=== PATIENT | female | born 1960 | race Caucasian/White ===

== ENCOUNTER → 2016-09-27 | Outpatient (CLI) | payer OTHER ==
--- NOTE | 2016-09-28 10:26 | MM ---
Reason for exam: screening (asymptomatic). Baseline mammogram. History: Patient is postmenopausal and history of other cancer. Physical Findings: Nurse Summary: 0.25cm nodule in the left breast at 9 o'clock (nurse adamaris). MG Screening Mammo w CAD Bilateral CC and MLO view(s) were taken. The breast tissue is heterogeneously dense. This may lower the sensitivity of mammography. Finding: There are typically benign round calcifications. There is no discrete abnormality. ASSESSMENT: Benign, BI-RAD 2 RECOMMENDATION: Routine screening mammogram of both breasts in 1 year.
== END | disposition home or self-care (01) ==
LOC: RADMAMWWP 10:05
PROVIDERS: ATTEND Family Medicine
DX: Z12.31 Encounter for screening mammogram for malignant neoplasm of breast (principal)

== ENCOUNTER 2016-10-03 08:35 | Day surgery (SDC) | payer OTHER ==
[2016-09-29 11:26] VITALS: BMI 22.2
[~2016-10-03 08:35] MED LIST: LACTATED RINGERS 1,000 ML IV SCH
[2016-10-03 09:12] VITALS: RESP 18; TEMP 97.9
[2016-10-03] MEDS ORDERED: LIDOCAINE 1% 20 ML VIAL (10MG/ML) FOR IV START INTRADERMA ONE (09:20)
[2016-10-03] MEDS ORDERED: LIDOCAINE 1% INJ 10MG/ML (20 ML MDV) ONE (09:55)
[2016-10-03] MEDS ORDERED: hydrALAZINE HCL 20 MG/ML 1 ML VIAL ONE (09:55)
[2016-10-03] MEDS ORDERED: PROPOFOL 10 MG/ML 20 ML VIAL IV ONE (09:55)
[2016-10-03 10:19] VITALS: PULSE 60
--- NOTE | 2016-10-03 10:26 | P.PCN ---
Date of Procedure: 10/03/16 Procedure(s) Performed: Procedure: Colonoscopy and biopsy. Preoperative diagnosis: Screening for neoplasia. Postoperative diagnosis: Small right colon polyp biopsied but no large polyps or cancer. Preparation: HalfLytely prep. Sedation: Was provided by anesthesia. Brief clinical history: The patient is a 55-year-old female who is referred for this evaluation for screening for neoplasia, age being her risk factor. She has no abdominal complaints, bleeding or anemia. No family history of colon cancer. This would be her first colonoscopy. Procedure: With the patient on her left lateral decubitus position and after informed consent and adequate sedation, the perianal area was inspected and it did not show any fissures or fistulas. There were no masses felt on digital rectal examination. The Olympus CFQ 160L video colonoscope was then inserted in the rectum in the usual fashion and advanced to the cecum. There was a small ,flat and elongated polyp in the right colon, having to features of a hyperplastic polyp which I biopsied, but there were no large polyps or cancer or any obvious diverticular disease or other pathology. I retroflexed endoscope in the rectum before the endoscope was withdrawn. The patient tolerated the procedure well. Plan: The patient was reassured. Will await biopsy results. I anticipate repeating this exam in 5-7 years. She will follow-up with you as planned.
[2016-10-03 10:36] VITALS: BP 149/90
== END 2016-10-03 10:55 | disposition home or self-care (01) ==
LOC: ORWHC2ENDO 08:35
DX: Z12.11 Encounter for screening for malignant neoplasm of colon (principal); D12.2 Benign neoplasm of ascending colon; I10 Essential (primary) hypertension; E78.5 Hyperlipidemia, unspecified; Z79.899 Other long term (current) drug therapy; Z72.0 Tobacco use
CPT/HCPCS: 88305; 45380; J0360; J2001; J2704; 99153

== ENCOUNTER → 2017-04-23 | Outpatient (CLI) | payer OTHER ==
[2017-04-23 10:08] LABS: ALT 37 U/L (9-52); AST 18 U/L (14-36); Cholesterol 163 mg/dL (<200); HDL Cholesterol 53 mg/dL (40-60); Triglycerides 89 mg/dL (<150)
== END | disposition home or self-care (01) ==
LOC: LABWHC1 09:26
PROVIDERS: ATTEND Internal Medicine Interventional Cardiology
DX: E78.2 Mixed hyperlipidemia (principal)
CPT/HCPCS: 36415; 80061; 84450; 84460

== ENCOUNTER 2017-06-29 08:38 | Observation (INO) | payer OTHER ==
[2017-06-29] MEDS ORDERED: NITROGLYCERIN OINT 1 INCH/GM PACKET TOPICAL STA (08:54)
[2017-06-29] MEDS ORDERED: NITROGLYCERIN SL TABS 0.4 MG TAB SUBLINGUAL STA (08:54)
[2017-06-29] MEDS ORDERED: ASPIRIN 81 MG PO STA (08:54)
--- NOTE | 2017-06-29 09:01 | ED ---
General Adult HPI - General Chief complaint: Chest Pain Stated complaint: left arm numbness/HTN Time Seen by Provider: 06/29/17 08:40 Source: patient, RN notes reviewed Mode of arrival: wheelchair Limitations: no limitations - History of Present Illness Initial comments: This is a 56-year-old female with past medical history significant for smoking hypertension high cholesterol. Patient presents today after having had chest pain and left arm tingling. Patient states the left arm is been constant for 3 days but the chest pain comes and goes and is only very minimally currently. Patient states she is no more short of breath than normal. Patient denies diaphoresis. Patient denies any nausea. Patient denies abdominal pain patient denies nausea vomiting diarrhea. Patient denies any recent fever chills or cough. Patient denies headache patient denies lightheadedness dizziness or near syncopal episode. Patient denies any headache patient denies numbness or weakness. Patient states pain in her chest is more of a pressure sensation and it does get worse at times and she has not noted getting worse with exertion. - Related Data Home Medications Medication Instructions Recorded Confirmed Lisinopril [Prinivil] 10 mg PO HS 09/29/16 06/29/17 Metoprolol Tartrate [Lopressor] 50 mg PO BID 09/29/16 06/29/17 Simvastatin [Zocor] 20 mg PO HS 09/29/16 06/29/17 Metoprolol Tartrate [Lopressor] 25 mg PO ONCE PRN 06/29/17 06/29/17 Allergies Allergy/AdvReac Type Severity Reaction Status Date / Time No Known Allergies Allergy Verified 06/29/17 09:02 Review of Systems ROS Statement: Those systems with pertinent positive or pertinent negative responses have been documented in the HPI. ROS Other: All systems not noted in ROS Statement are negative. Past Medical History Past Medical History: Cancer, Chest Pain / Angina, Hyperlipidemia, Hypertension , Skin Disorder Additional Past Medical History / Comment(s): skin cancer, History of Any Multi-Drug Resistant Organisms: None Reported Past Surgical History: Tubal Ligation Past Anesthesia/Blood Transfusion Reactions: Previous Problems w/ Anesthesia Additional Past Anesthesia/Blood Transfusion Reaction / Comment(s): hard time waking up Past Psychological History: No Psychological Hx Reported Smoking Status: Current every day smoker - Past Family History Mother Family Medical History: No Reported History General Exam - General Exam Comments Initial Comments: GENERAL: Patient is well-developed and well-nourished. Patient is nontoxic and well- hydrated and is in mild distress. ENT: Neck is soft and supple. No significant lymphadenopathy is noted. Oropharynx is clear. Moist mucous membranes. Neck has full range of motion without eliciting any pain. EYES: The sclera were anicteric and conjunctiva were pink and moist. Extraocular movements were intact and pupils were equal round and reactive to light. Eyelids were unremarkable. PULMONARY: Unlabored respirations. Good breath sounds bilaterally. No audible rales rhonchi or wheezing was noted. CARDIOVASCULAR: There is a regular rate and rhythm without any murmurs gallops or rubs. ABDOMEN: Soft and nontender with normal bowel sounds. No palpable organomegaly was noted. There is no palpable pulsatile mass. SKIN: Skin is clear with no lesions or rashes and otherwise unremarkable. NEUROLOGIC: Patient is alert and oriented x3. Cranial nerves II through XII are grossly intact. Motor and sensory are also intact. Normal speech, volume and content. Symmetrical smile. MUSCULOSKELETAL: Normal extremities with adequate strength and full range of motion. No lower extremity swelling or edema. No calf tenderness. LYMPHATICS: No significant lymphadenopathy is noted PSYCHIATRIC: Normal psychiatric evaluation. Normal interpersonal interactions appears functionally intact in deals appropriately with others. No signs of depression. No signs of anxiety. Limitations: no limitations Course Vital Signs 06/29/17 06/29/17 06/29/17 08:40 08:55 09:10 Temperature 97.1 F L Pulse Rate 74 72 55 L Respiratory 16 16 16 Rate Blood Pressure 195/127 212/123 199/112 O2 Sat by Pulse 99 100 100 Oximetry 06/29/17 06/29/17 09:33 10:00 Temperature Pulse Rate 55 L 57 L Respiratory 16 17 Rate Blood Pressure 191/112 190/110 O2 Sat by Pulse 100 99 Oximetry Medical Decision Making - Medical Decision Making EKG shows sinus bradycardia 57 bpm MO interval is 142 QRS is 84 QT interval 412 QTC is 411. Patient's EKG shows no ST segment elevation or depression or T- wave abnormalities. Patient's chest x-ray shows no acute abnormality. Patient states she's feeling better with the oxygen Nitropaste and aspirin and resting in bed. I started the patient on heparin because of the significance of her symptoms and the fact that they were new for her. I gave the patient hydralazine to continue to bring down her blood pressure. I spoke with Dr. Sadler I wrote admitting orders I admitted the patient I consult to cardiology I continue the heparin Nitropaste and aspirin on the floor. - Lab Data Result diagrams: 06/29/17 09:00 06/29/17 09:00 Lab Results 06/29/17 06/29/17 06/29/17 Range/Units 09:00 09:00 09:00 WBC 7.5 (3.8-10.6) k/uL RBC 4.89 (3.80-5.40) m/uL Hgb 15.4 (11.4-16.0) gm/dL Hct 48.1 H (34.0-46.0) % MCV 98.4 (80.0-100.0) fL MCH 31.6 (25.0-35.0) pg MCHC 32.1 (31.0-37.0) g/dL RDW 13.3 (11.5-15.5) % Plt Count 227 (150-450) k/uL Neutrophils % 70 % Lymphocytes % 23 % Monocytes % 4 % Eosinophils % 2 % Basophils % 0 % Neutrophils # 5.3 (1.3-7.7) k/uL Lymphocytes # 1.7 (1.0-4.8) k/uL Monocytes # 0.3 (0-1.0) k/uL Eosinophils # 0.1 (0-0.7) k/uL Basophils # 0.0 (0-0.2) k/uL PT (9.0-12.0) sec INR (<1.2) APTT (22.0-30.0) sec Sodium 143 (137-145) mmol/L Potassium 4.2 (3.5-5.1) mmol/L Chloride 110 H (98-107) mmol/L Carbon Dioxide 21 L (22-30) mmol/L Anion Gap 12 mmol/L BUN 10 (7-17) mg/dL Creatinine 0.72 (0.52-1.04) mg/dL Est GFR (MDRD) Af Amer >60 (>60 ml/min/1.73 sqM) Est GFR (MDRD) Non-Af >60 (>60 ml/min/1.73 sqM) Glucose 93 (74-99) mg/dL Calcium 10.0 (8.4-10.2) mg/dL Magnesium 2.0 (1.6-2.3) mg/dL Total Bilirubin 1.5 H (0.2-1.3) mg/dL AST 20 (14-36) U/L ALT 31 (9-52) U/L Alkaline Phosphatase 77 (38-126) U/L Total Creatine Kinase 52 (30-135) U/L CK-MB (CK-2) 0.6 (0.0-2.4) ng/mL CK-MB (CK-2) Rel Index 1.2 Troponin I <0.012 (0.000-0.034) ng/mL Total Protein 7.3 (6.3-8.2) g/dL Albumin 4.7 (3.5-5.0) g/dL 06/29/17 Range/Units 09:00 WBC (3.8-10.6) k/uL RBC (3.80-5.40) m/uL Hgb (11.4-16.0) gm/dL Hct (34.0-46.0) % MCV (80.0-100.0) fL MCH (25.0-35.0) pg MCHC (31.0-37.0) g/dL RDW (11.5-15.5) % Plt Count (150-450) k/uL Neutrophils % % Lymphocytes % % Monocytes % % Eosinophils % % Basophils % % Neutrophils # (1.3-7.7) k/uL Lymphocytes # (1.0-4.8) k/uL Monocytes # (0-1.0) k/uL Eosinophils # (0-0.7) k/uL Basophils # (0-0.2) k/uL PT 10.4 (9.0-12.0) sec INR 1.0 (<1.2) APTT 23.2 (22.0-30.0) sec Sodium (137-145) mmol/L Potassium (3.5-5.1) mmol/L Chloride (98-107) mmol/L Carbon Dioxide (22-30) mmol/L Anion Gap mmol/L BUN (7-17) mg/dL Creatinine (0.52-1.04) mg/dL Est GFR (MDRD) Af Amer (>60 ml/min/1.73 sqM) Est GFR (MDRD) Non-Af (>60 ml/min/1.73 sqM) Glucose (74-99) mg/dL Calcium (8.4-10.2) mg/dL Magnesium (1.6-2.3) mg/dL Total Bilirubin (0.2-1.3) mg/dL AST (14-36) U/L ALT (9-52) U/L Alkaline Phosphatase (38-126) U/L Total Creatine Kinase (30-135) U/L CK-MB (CK-2) (0.0-2.4) ng/mL CK-MB (CK-2) Rel Index Troponin I (0.000-0.034) ng/mL Total Protein (6.3-8.2) g/dL Albumin (3.5-5.0) g/dL Critical Care Time Critical Care Time: Yes Total Critical Care Time: 35 Disposition Clinical Impression: Unstable angina pectoris, Hypertension Disposition: ADMITTED IP TO THIS HOSP Referrals: Catrina Hollingsworth MD [Primary Care Provider] - 1-2 days Time of Disposition: 10:43
[2017-06-29 09:18] LABS: Basophils % (A) 0 %; CH 33.4; CHCM 34.1; Eosinophils # (A) 0.1 k/uL (0-0.7); Eosinophils % (A) 2 %; HCT 48.1 % (34.0-46.0); HDW 2.22; HGB 15.4 gm/dL (11.4-16.0); Luc % (Auto) 1; Lymphocytes # (A) 1.7 k/uL (1.0-4.8); Lymphocytes % (A) 23 %; MCH 31.6 pg (25.0-35.0); MCHC 32.1 g/dL (31.0-37.0); MCV 98.4 fL (80.0-100.0); Mean Platelet Volume 9.3; Monocytes # (A) 0.3 k/uL (0-1.0); Monocytes % (A) 4 %; Neutrophils # (A) 5.3 k/uL (1.3-7.7); Neutrophils % (A) 70 %; RBC 4.89 m/uL (3.80-5.40); RDW 13.3 % (11.5-15.5); WBC 7.5 k/uL (3.8-10.6); WBC (Perox) 7.66
--- NOTE | 2017-06-29 09:18 | XR ---
EXAMINATION TYPE: XR chest 2V DATE OF EXAM: 06/29/2017 COMPARISON: November 25, 2012 HISTORY: Chest pain TECHNIQUE: Frontal and lateral views of the chest are obtained. FINDINGS: There is no focal air space opacity. No evidence for pneumothorax. No pleural effusion. The cardiac silhouette size is within normal limits. The osseous structures are grossly intact. IMPRESSION: 1. No acute cardiopulmonary process.
[2017-06-29 09:37] LABS: ALT 31 U/L (9-52); AST 20 U/L (14-36); Alkaline Phosphatase 77 U/L (38-126); Anion Gap 12 mmol/L; Blood Urea Nitrogen 10 mg/dL (7-17); Carbon Dioxide 21 mmol/L (22-30); Chloride 110 mmol/L (98-107); Glucose 93 mg/dL (74-99); Non-African American GFR(MDRD) >60 (>60 ml/min/1.73 sqM); Potassium 4.2 mmol/L (3.5-5.1); Sodium 143 mmol/L (137-145); Total Bilirubin 1.5 mg/dL (0.2-1.3); Total Protein 7.3 g/dL (6.3-8.2)
[2017-06-29 09:48] LABS: Creatine Kinase 52 U/L (30-135)
[2017-06-29 09:50] LABS: Partial Thromboplastin Time 23.2 sec (22.0-30.0); Prothrombin Time 10.4 sec (9.0-12.0)
[2017-06-29 10:01] LABS: Creatine Kinase MB 0.6 ng/mL (0.0-2.4); Troponin I <0.012 ng/mL (0.000-0.034)
[2017-06-29] MEDS ORDERED: HEPARIN SODIUM,PORCINE 5,000 UNIT/ML 1 ML VIAL IV ONE (10:40)
[2017-06-29] MEDS ORDERED: NITROGLYCERIN SL TABS 0.4 MG TAB SUBLINGUAL PRN (10:43)
[2017-06-29] MEDS ORDERED: HEPARIN SODIUM,PORCINE/D5W PMX 25,000 UNIT in DEXTROSE/WATER 1 500ML.BAG IV SCH (10:45)
[2017-06-29] MEDS: hydrALAZINE HCL 20 MG/ML 1 ML VIAL IVP STA ×2 (11:08→11:10)
--- NOTE | 2017-06-29 12:25 | P.CRDCN ---
History of Present Illness Consult date: 06/29/17 History of present illness: This is a 56-year-old female patient who follows with Dr. Mondragon as an outpatient. Past medical history significant for hyperlipidemia and hypertension. We have been asked to see the patient for complaints of chest pain. She states for the last three days she has been woken up with severely elevated blood pressures in the 200 systolic. She also is experiencing chest tightness and left arm tingling. Of note she states for the past week she has been belching more frequently and taking tums for indigestion. The pain dose not radiate anywhere. She denies shortness of breath, dizziness, headache, palpitations or nausea/vomiting. Yesterday while this was going on she decided to go for a walk and see if that helped and it did. Her blood pressure had come down and she was chest pain free. She had a similar experience in April and was seen at another hospital but left prior to seeing cardiology. Medications include Zocor 20 mg daily, lisinopril 10 mg daily at bedtime and Lopressor 50 mg twice a day. Her most recent echocardiogram performed November 2012 reveals preserved left ventricular systolic function with an ejection fraction of 50-55% . Aortic valve appeared to be mildly thickened without stenosis or regurgitation at that time. Mitral valve appeared mildly thickened with mild mitral regurgitation. Blood pressure on arrival to the ED 195/127 she was given IV hydralazine and nitro paste. Repeat blood pressure 164/98 with a heart rate of 58. EKG reveals sinus bradycardia with no acute ST or T-wave abnormality. Cardiac enzymes negative x1. She is chronic tobacco abuser smoking one pack per one week. Review of Systems CONSTITUTIONAL: Denies fever. Denies chills. EYES: Denies blurred vision. Denies vision changes. Denies eye pain. EARS, NOSE, MOUTH & THROAT: Denies headache. Denies sore throat. Denies ear pain. CARDIOVASCULAR: C/O chest pain. Denies shortness of breath. Denies orthopnea. Denies PND. Denies palpitations. RESPIRATORY: Denies cough. GASTROINTESTINAL: Denies abdominal pain. Denies diarrhea. Denies constipation. Denies nausea. Denies vomiting. MUSCULOSKELETAL: Denies myalgias. INTEGUMENTARY: Denies pruitis. Denies rash. NEUROLOGIC: Denies numbness. Denies tingling. Denies weakness. PSYCHIATRIC: Denies anxiety. Denies depression. ENDOCRINE: Denies fatigue. Denies weight change. Denies polydipsia. Denies polyurina. GENITOURINARY: Denies burning, hematuria or urgency with micturation. HEMATOLOGIC: Denies history of anemia. Denies bleeding. Past Medical History Past Medical History: Cancer, Chest Pain / Angina, Hyperlipidemia, Hypertension , Skin Disorder Additional Past Medical History / Comment(s): skin cancer, History of Any Multi-Drug Resistant Organisms: None Reported Past Surgical History: Tubal Ligation Past Anesthesia/Blood Transfusion Reactions: Previous Problems w/ Anesthesia Additional Past Anesthesia/Blood Transfusion Reaction / Comment(s): hard time waking up Past Psychological History: No Psychological Hx Reported Smoking Status: Current every day smoker - Past Family History Mother Family Medical History: No Reported History Father History Unknown: Yes Additional Family Medical History / Comment(s): Father in a train accident. Medications and Allergies Home Medications Medication Instructions Recorded Confirmed Type Lisinopril [Prinivil] 10 mg PO HS 09/29/16 06/29/17 History Metoprolol Tartrate [Lopressor] 50 mg PO BID 09/29/16 06/29/17 History Simvastatin [Zocor] 20 mg PO HS 09/29/16 06/29/17 History Metoprolol Tartrate [Lopressor] 25 mg PO ONCE PRN 06/29/17 06/29/17 History Allergies Allergy/AdvReac Type Severity Reaction Status Date / Time No Known Allergies Allergy Verified 06/29/17 09:02 Physical Exam Vitals: Vital Signs Temp Pulse Resp BP Pulse Ox 06/29/17 11:22 97.9 F 06/29/17 11:08 58 L 16 164/98 98 06/29/17 10:00 57 L 17 190/110 99 06/29/17 09:33 55 L 16 191/112 100 06/29/17 09:10 55 L 16 199/112 100 06/29/17 08:55 72 16 212/123 100 06/29/17 08:40 97.1 F L 74 16 195/127 99 Intake and Output 06/28/17 06/29/17 06/29/17 22:59 06:59 14:59 Other: Weight 64.41 kg Patient Weight 06/30/17 06:59 Weight 64.41 kg GENERAL: This is a 56-year-old female in no apparent distress at the time of my examination. Appears older than stated age. HEENT: Head is atraumatic, normocephalic. Pupils are equal, round. Sclerae anicteric. Conjunctivae are clear. Mucous membranes of the mouth are moist. Neck is supple. There is no jugular venous distention. No carotid bruit is heard. LUNGS: Coarse lung sounds throughout. No wheezes, rales or rhonchi. No chest wall tenderness is noted on palpation or with deep breathing. HEART: Regular rate and rhythm without murmurs, rubs or gallops. S1 and S2 heard. ABDOMEN: Soft, nontender. Bowel sounds are heard. No organomegaly noted. EXTREMITIES: 2+ peripheral pulses with no evidence of peripheral edema and no calf tenderness noted. NEUROLOGIC: Patient is awake, alert and oriented x3. Results 06/29/17 09:00 06/29/17 09:00 Cardiac Enzymes 06/29/17 06/29/17 Range/Units 09:00 09:00 AST 20 (14-36) U/L CK-MB (CK-2) 0.6 (0.0-2.4) ng/mL Troponin I <0.012 (0.000-0.034) ng/mL Coagulation 06/29/17 Range/Units 09:00 PT 10.4 (9.0-12.0) sec APTT 23.2 (22.0-30.0) sec CBC 06/29/17 Range/Units 09:00 WBC 7.5 (3.8-10.6) k/uL RBC 4.89 (3.80-5.40) m/uL Hgb 15.4 (11.4-16.0) gm/dL Hct 48.1 H (34.0-46.0) % Plt Count 227 (150-450) k/uL Comprehensive Metabolic Panel 06/29/17 Range/Units 09:00 Sodium 143 (137-145) mmol/L Potassium 4.2 (3.5-5.1) mmol/L Chloride 110 H (98-107) mmol/L Carbon Dioxide 21 L (22-30) mmol/L BUN 10 (7-17) mg/dL Creatinine 0.72 (0.52-1.04) mg/dL Glucose 93 (74-99) mg/dL Calcium 10.0 (8.4-10.2) mg/dL AST 20 (14-36) U/L ALT 31 (9-52) U/L Alkaline Phosphatase 77 (38-126) U/L Total Protein 7.3 (6.3-8.2) g/dL Albumin 4.7 (3.5-5.0) g/dL Current Medications Generic Name Dose Route Start Last Admin Trade Name Freq PRN Reason Stop Dose Admin Aspirin 325 mg 06/30/17 09:00 Aspirin PO DAILY [facility] Heparin Sodium/Dextrose 25,000 500 mls @ 15.45 mls/hr 06/29/17 10:45 11:09 unit/ IV Solution IV 12 units/kg/hr .Q24H NORAH 15.45 mls/hr Protocol Administration 12 UNITS/KG/HR Nitroglycerin 1 inch 06/29/17 12:00 Nitro-Bid Oint TOPICAL Q6HR [facility] Nitroglycerin 0.4 mg 06/29/17 10:43 Nitrostat SUBLINGUAL Q5M PRN Chest Pain Intake and Output 06/28/17 06/29/17 06/29/17 22:59 06:59 14:59 Other: Weight 64.41 kg Patient Weight 06/30/17 06:59 Weight 64.41 kg 06/29/17 09:00 06/29/17 09:00 EKG Interpretations (text) EKG reveals sinus mechanism with no acute ST or T-wave abnormality. Heart rate 57. Assessment and Plan Plan: ASSESSMENT 1. Chest pain, atypical 2. Uncontrolled hypertension 3. Dyslipidemia 4. Chronic tobacco abuse PLAN Continue to obtain serial cardiac enzymes and EKG in the morning to rule out an acute coronary event. Continue with IV heparin and Nitropaste until acute coronary event has been ruled out. Obtain 2-D echo and Doppler study to assess cardiac structure and function. Add amlodipine 10 mg daily, first dose now. Increase lisinopril 20 mg daily. Continue Lopressor 50 mg by mouth twice a day. Continue Zocor 20 mg at bedtime. We recommend keeping the patient overnight for continuous telemetry monitoring and further evaluation of symptoms. Further recommendations will be based upon clinical course. Smoking cessation has been discussed. Nurse Practitioner note has been reviewed, I agree with a documented findings and plan of care. Patient was seen and examined.
--- NOTE | 2017-06-29 15:49 | P.HPIM ---
History of Present Illness Her old female came in with complaints of epigastric abdominal burning sensation along with the nausea which we'll use by burping and radiation of pain to the left arm patient's pain is burning sensation precipitated by food patient denied any shortness of breath dizziness lightheadedness or diaphoresis associated that patient chest pain is nonpleuritic in nature patient is found to have highly elevated blood pressure because of which she was given hydralazine with the blood pressure coming down to about about 150 systolic patient was started on amlodipine by cardiology which which is probably appropriate but we will cut down the dose of amlodipine from 10 mg to 5 mg and patient had an EKG which did not show any acute ST-T wave changes facet of troponin is negative patient is a smoker uses about one pack of cigarettes per week. Patient's elevated blood pressure is probably secondary to epigastric burning sensation and nausea Review of Systems REVIEW OF SYSTEMS: CONSTITUTIONAL: No fever, no malaise, no fatigue. HEENT: No recent visual problems or hearing problems. Denied any sore throat. CARDIOVASCULAR: No orthopnea, PND, no palpitations, no syncope. PULMONARY: No shortness of breath, no cough, no hemoptysis. GASTROINTESTINAL: No diarrhea, Normoactive bowel sounds. NEUROLOGICAL: No headaches, no weakness, no numbness. HEMATOLOGICAL: Denies any bleeding or petechiae. GENITOURINARY: Denies any burning micturition, frequency, or urgency. MUSCULOSKELETAL/RHEUMATOLOGICAL: Denies any joint pain, swelling, or any muscle pain. ENDOCRINE: Denies any polyuria or polydipsia. The rest of the 14-point review of systems is negative. Past Medical History Past Medical History: Cancer, Chest Pain / Angina, Hyperlipidemia, Hypertension , Skin Disorder Additional Past Medical History / Comment(s): skin cancer, History of Any Multi-Drug Resistant Organisms: None Reported Past Surgical History: Tubal Ligation Additional Past Surgical History / Comment(s): Skin cancer removals, colonoscopy. Past Anesthesia/Blood Transfusion Reactions: Previous Problems w/ Anesthesia Additional Past Anesthesia/Blood Transfusion Reaction / Comment(s): hard time waking up Past Psychological History: No Psychological Hx Reported Smoking Status: Current every day smoker - Past Family History Mother Family Medical History: No Reported History Additional Family Medical History / Comment(s): Mother currently has CDiff. She recently had a ruptured gastric ulcer with surgical repair and is not recovering from this. She is 84 yrs old and pt states currently dying. Father History Unknown: Yes Additional Family Medical History / Comment(s): Father in a train accident. Medications and Allergies Home Medications Medication Instructions Recorded Confirmed Type Lisinopril [Prinivil] 10 mg PO HS 09/29/16 06/29/17 History Metoprolol Tartrate [Lopressor] 50 mg PO BID 09/29/16 06/29/17 History Simvastatin [Zocor] 20 mg PO HS 09/29/16 06/29/17 History Metoprolol Tartrate [Lopressor] 25 mg PO ONCE PRN 06/29/17 06/29/17 History Allergies Allergy/AdvReac Type Severity Reaction Status Date / Time No Known Allergies Allergy Verified 06/29/17 09:02 Physical Exam Vitals: Vital Signs Temp Pulse Pulse Resp BP BP Pulse Ox 06/29/17 11:30 98.4 F 54 L 15 162/91 98 06/29/17 11:22 97.9 F 06/29/17 11:08 58 L 16 164/98 98 06/29/17 10:00 57 L 17 190/110 99 06/29/17 09:33 55 L 16 191/112 100 06/29/17 09:10 55 L 16 199/112 100 06/29/17 08:55 72 16 212/123 100 06/29/17 08:40 97.1 F L 74 16 195/127 99 Intake and Output 06/29/17 06/29/17 06/29/17 06:59 14:59 22:59 Other: Weight 62.5 kg Patient Weight 06/30/17 06:59 Weight 62.5 kg PHYSICAL EXAMINATION: GENERAL: The patient is alert and oriented x3, not in any acute distress. Well developed, well nourished. HEENT: Pupils are round and equally reacting to light. EOMI. No scleral icterus. No conjunctival pallor. Normocephalic, atraumatic. No pharyngeal erythema. No thyromegaly. CARDIOVASCULAR: S1 and S2 present. No murmurs, rubs, or gallops. PULMONARY: Chest is clear to auscultation, no wheezing or crackles. ABDOMEN: Soft, nontender, nondistended, normoactive bowel sounds. No palpable organomegaly. MUSCULOSKELETAL: No joint swelling or deformity. EXTREMITIES: No cyanosis, clubbing, or pedal edema. NEUROLOGICAL: Gross neurological examination did not reveal any focal deficits. SKIN: No rashes. Results CBC & Chem 7: 06/29/17 09:00 06/29/17 09:00 Labs: Abnormal Lab Results - Last 24 Hours (Table) 06/29/17 06/29/17 Range/Units 09:00 09:00 Hct 48.1 H (34.0-46.0) % Chloride 110 H (98-107) mmol/L Carbon Dioxide 21 L (22-30) mmol/L Total Bilirubin 1.5 H (0.2-1.3) mg/dL Thrombosis Risk Factor Assmnt - Choose All That Apply Any of the Below Risk Factors Present?: Yes Each Factor Represents 1 point: Age 41-60 years Each Risk Factor Represents 2 Points: Malignancy Other congenital or acquired thrombophilia - If yes, enter type in comment: No Thrombosis Risk Factor Assessment Total Risk Factor Score: 3 Thrombosis Risk Factor Assessment Level: Moderate Risk Assessment and Plan Plan: #1 epigastric abdominal burning sensation along with nausea: We will rule out acute coronary syndromes was a repeat 2 more sets of troponins and EKGs but her pain is most probably related to gastritis and dry gastric esophageal reflux disease for which patient will be started on protonic. #2 accelerated hypertension secondary to nausea and gastritis. Patient does have history of essential hypertension. #3 essential hypertension #4 hyperlipidemia
--- NOTE | 2017-06-29 15:51 | ECHOF ---
Referral Reason:chest pain MEASUREMENTS -------- HEIGHT: 167.6 cm WEIGHT: 64.4 kg BP: 164/98 RVIDd: 2.8 cm (< 3.3) IVSd: 1.2 cm (0.6 - 1.1) LVIDd: 4.4 cm (3.9 - 5.3) LVPWd: 1.1 cm (0.6 - 1.1) IVSs: 1.5 cm LVIDs: 2.1 cm LVPWs: 1.6 cm LA Diam: 2.8 cm (2.7 - 3.8) LAESV Index (A-L): 20.80 ml/m Ao Diam: 2.7 cm (2.0 - 3.7) AV Cusp: 1.9 cm (1.5 - 2.6) MV EXCURSION: 14.382 mm (> 18.000) MV EF SLOPE: 91 mm/s (70 - 150) EPSS: 0.5 cm MV E Butch: 0.77 m/s MV DecT: 284 ms MV A Butch: 0.77 m/s MV E/A Ratio: 1.01 RAP: 5.00 mmHg RVSP: 20.18 mmHg FINDINGS -------- Sinus rhythm. This was a technically good study. The left ventricular size is normal. There is borderline concentric left ventricular hypertrophy. Overall left ventricular systolic function is normal with, an EF between 60 - 65 %. The right ventricle is normal in size. Normal LA size by volume 22+/-6 ml/m2. The right atrium is normal in size. The aortic valve is trileaflet and appears structurally normal. The mitral valve is normal. Mild tricuspid regurgitation present. Right ventricular systolic pressure is normal at < 35 mmHg. There is no pulmonic regurgitation present. The aortic root size is normal. Normal inferior vena cava with normal inspiratory collapse consistent with estimated right atrial pressure of 5 mmHg. There is no pericardial effusion. CONCLUSIONS -------- 1. Sinus rhythm. 2. The mitral valve is normal. 3. Mild tricuspid regurgitation present. 4. Right ventricular systolic pressure is normal at < 35 mmHg. 5. There is no pulmonic regurgitation present. 6. The aortic root size is normal. 7. Normal inferior vena cava with normal inspiratory collapse consistent with estimated right atrial pressure of 5 mmHg. 8. There is no pericardial effusion. 9. This was a technically good study. 10. The left ventricular size is normal. 11. There is borderline concentric left ventricular hypertrophy. 12. Overall left ventricular systolic function is normal with, an EF between 60 - 65 %. 13. The right ventricle is normal in size. 14. Normal LA size by volume 22+/-6 ml/m2. 15. The right atrium is normal in size. 16. The aortic valve is trileaflet and appears structurally normal. BUSINESS INTELLIGENCE ETL DEVELOPER: Jaclyn Baird RDCS
[2017-06-29] MEDS: NITROGLYCERIN OINT 1 INCH/GM PACKET TOPICAL SCH ×3 (16:34→23:43)
[2017-06-29] MEDS: amLODIPine 10 MG TAB PO SCH (16:34)
[2017-06-29] MEDS: PANTOPRAZOLE 40 MG/10 ML VIAL IVP SCH (16:35)
[2017-06-29 17:22] LABS: Creatine Kinase 34 U/L (30-135)
[2017-06-29 17:35] LABS: Creatine Kinase MB 0.4 ng/mL (0.0-2.4); Troponin I <0.012 ng/mL (0.000-0.034)
[2017-06-29] MEDS ORDERED: LISINOPRIL 20 MG TAB PO SCH (18:00)
[2017-06-29] MEDS: METOPROLOL TARTRATE 50 MG TAB PO SCH (20:27)
[2017-06-29] MEDS ORDERED: ATORVASTATIN 20 MG TAB PO SCH (21:00)
[2017-06-29 21:35] LABS: Creatine Kinase 36 U/L (30-135)
[2017-06-29 21:48] LABS: Creatine Kinase MB 0.4 ng/mL (0.0-2.4); Troponin I <0.012 ng/mL (0.000-0.034)
[2017-06-29 21:55] VITALS: RESP 18
[2017-06-30 04:31] LABS: Cholesterol 126 mg/dL (<200); HDL Cholesterol 44 mg/dL (40-60)
[2017-06-30] MEDS: NITROGLYCERIN OINT 1 INCH/GM PACKET TOPICAL SCH (04:49)
[2017-06-30] MEDS ORDERED: ASPIRIN 325 MG TAB PO SCH (09:00)
[2017-06-30] MEDS: PANTOPRAZOLE 40 MG/10 ML VIAL IVP SCH (09:07)
[2017-06-30] MEDS: amLODIPine 10 MG TAB PO SCH (09:16)
[2017-06-30] MEDS: METOPROLOL TARTRATE 50 MG TAB PO SCH (09:16)
[2017-06-30] MEDS ORDERED: HYDROCHLOROTHIAZIDE 25 MG TAB PO SCH (10:15)
--- NOTE | 2017-06-30 10:30 | PN ---
PROGRESS NOTE Ms. Roberts is 56-year-old female known history of chronic tobacco use, hypertension, hyperlipidemia, who presented with elevated blood pressure. She is feeling better now. She had some chest discomfort that resolved. She has abdominal discomfort. She denies any dizziness or palpitation. She continues to be on amlodipine 10 mg daily, aspirin once a day, Lipitor 20 mg daily, lisinopril 20 mg daily, metoprolol tartrate 50 mg twice a day, nitro paste and IV heparin. PHYSICAL EXAMINATION: Blood pressure running 150/90 with a heart in 50s. LUNGS: Clear. Heart regular rate and rhythm. S1, S2. No S3. No rub. ABDOMEN: Soft, nontender. EXTREMITIES: No edema. LAB DATA: Lab data revealed troponin less than 0.012. BUN and creatinine 10 and 0.72. Cholesterol 126, LDL of 64. Her echocardiogram revealed a preserved left ventricular size and systolic function. IMPRESSION: 1. Hypertension, remains elevated. 2. History of hyperlipidemia. 3. Chronic tobacco use. 4. Chest discomfort, atypical for ischemic heart disease. RECOMMENDATION: I will add to her regimen hydrochlorothiazide 25 mg daily. Continue the rest of her medical regimen. Increase level of activity. If she is stable, I would expect she should be able to be discharged home and followed as an outpatient. MMODL / IJN: [id number] /
[2017-06-30 11:51] VITALS: BP 146/89; PULSE 51; TEMP 98.4
--- NOTE | 2017-06-30 12:30 | P.DS ---
Providers Date of admission: 06/29/17 10:45 Attending physician: Inderjit Sdaler Consults: 06/29/17 10:43 Consult Physician Urgent Consulting Provider: [facility] Consult Reason/Comments: Unstable angina Do you want consulting provider notified?: Yes Primary care physician: Catrina Hollingsworth Hospital Course: Patient was admitted for epigastric abdominal pain we ruled out acute coronary syndromes patient will be discharged and parasite patient blood pressure was elevated when she came and patient was started on amlodipine. The peak action of amlodipine is a at about 7 days because of which I'm not starting her on hydrochlorothiazide, this can be added as dosed outpatient if she continues to have elevated blood pressure. PHYSICAL EXAMINATION: GENERAL: The patient is alert and oriented x3, not in any acute distress. Well developed, well nourished. HEENT: Pupils are round and equally reacting to light. EOMI. No scleral icterus. No conjunctival pallor. Normocephalic, atraumatic. No pharyngeal erythema. No thyromegaly. CARDIOVASCULAR: S1 and S2 present. No murmurs, rubs, or gallops. PULMONARY: Chest is clear to auscultation, no wheezing or crackles. ABDOMEN: Soft, nontender, nondistended, normoactive bowel sounds. No palpable organomegaly. MUSCULOSKELETAL: No joint swelling or deformity. EXTREMITIES: No cyanosis, clubbing, or pedal edema. NEUROLOGICAL: Gross neurological examination did not reveal any focal deficits. SKIN: No rashes. #1 epigastric abdominal burning sensation along with nausea: #2 accelerated hypertension secondary to nausea and gastritis. Patient does have history of essential hypertension. #3 essential hypertension #4 hyperlipidemia Plan - Discharge Summary New Discharge Prescriptions: New amLODIPine [Norvasc] 10 mg PO DAILY #30 tab Omeprazole [PriLOSEC] 40 mg PO AC-BRKFST #14 capsule.dr Continue Simvastatin [Zocor] 20 mg PO HS Metoprolol Tartrate [Lopressor] 50 mg PO BID Lisinopril [Prinivil] 10 mg PO HS Metoprolol Tartrate [Lopressor] 25 mg PO ONCE PRN PRN Reason: Blood Pressure - High Discharge Medication List Lisinopril [Prinivil] 10 mg PO HS 09/29/16 [History] Metoprolol Tartrate [Lopressor] 50 mg PO BID 09/29/16 [History] Simvastatin [Zocor] 20 mg PO HS 09/29/16 [History] Metoprolol Tartrate [Lopressor] 25 mg PO ONCE PRN 06/29/17 [History] Omeprazole [PriLOSEC] 40 mg PO JESSICA-MARY LOU #14 capsule. 06/30/17 [Rx] amLODIPine [Norvasc] 10 mg PO DAILY #30 tab 06/30/17 [Rx] Follow up Appointment(s)/Referral(s): Brian Mondragon MD [STAFF PHYSICIAN] - 3 Weeks (Please call the office on Sunday to set up appointment with Dr. Mondragon) Catrina Hollingsworth MD [Primary Care Provider] - 1-2 days Patient Instructions/Handouts: Chest Pain (GEN), Gastritis (GEN) Discharge Disposition: HOME SELF-CARE
== END 2017-06-30 12:35 | disposition home or self-care (01) ==
LOC: EC 08:38 → 3OBS 10:45
PROVIDERS: ADMIT Hospitalist; ATTEND Hospitalist
DX: K29.70 Gastritis, unspecified, without bleeding (principal); I10 Essential (primary) hypertension; R11.0 Nausea; R07.89 Other chest pain; R20.2 Paresthesia of skin; R20.0 Anesthesia of skin; E78.00 Pure hypercholesterolemia, unspecified; F17.210 Nicotine dependence, cigarettes, uncomplicated; Z79.899 Other long term (current) drug therapy; Z85.828 Personal history of other malignant neoplasm of skin
CPT/HCPCS: 99291; 96376 ×3; 96365; 96375 ×3; 96366 ×2; 36415; 93005; 93306; 80061; 80053; 82550; 82553; 83735; 84484; 85025; 85610; 85730 ×2; 71020; G0378 ×2; J0360; J1644 ×2; C9113 ×2

== ENCOUNTER → 2017-11-29 | Outpatient (CLI) | payer BC ==
--- NOTE | 2017-11-30 12:36 | MM ---
Reason for exam: screening (asymptomatic). Last mammogram was performed 1 year and 2 months ago. History: Patient is postmenopausal and history of other cancer. Physical Findings: A clinical breast exam by your physician is recommended on an annual basis and results should be correlated with mammographic findings. MG Screening Mammo w CAD Bilateral CC, MLO, and XCCL view(s) were taken. Prior study comparison: September 27, 2016, bilateral MG screening mammo w CAD. The breast tissue is heterogeneously dense. This may lower the sensitivity of mammography. Finding #1: There is a mass in the left breast. Finding #2: There are typically benign calcifications. There is a chronic nodularity in the right breast. ASSESSMENT: Incomplete: need additional imaging evaluation, BI-RAD 0 RECOMMENDATION: Special view mammogram of the left breast. If lesion persists on supplemental views, image directed ultrasound is recommended. [facility] will attempt to contact patient to return for supplemental views and ultrasound if indicated.
== END | disposition home or self-care (01) ==
LOC: RADMAMWWP 07:52
PROVIDERS: ATTEND Family Medicine
DX: Z12.31 Encounter for screening mammogram for malignant neoplasm of breast (principal)
CPT/HCPCS: 77067

== ENCOUNTER → 2017-12-04 | Outpatient (CLI) | payer BC ==
--- NOTE | 2017-12-05 07:42 | MM ---
Reason for exam: additional evaluation requested from abnormal screening. Last mammogram was performed less than 1 month ago. History: Patient is postmenopausal and history of other cancer. Physical Findings: Nurse Summary: 1cm nodule in the left breast at 9 o'clock (nurse jenni). MG Work Up Mamm w CAD LT Spot compression CC, spot compression MLO, and LM view(s) were taken of the left breast. Prior study comparison: November 29, 2017, bilateral MG screening mammo w CAD. September 27, 2016, bilateral MG screening mammo w CAD. There is no discrete abnormality. These results were verbally communicated with the patient and result sheet given to the patient on 12/04/17. ASSESSMENT: Incomplete: need additional imaging evaluation, BI-RAD 0 RECOMMENDATION: Ultrasound of the left breast. (left palpable abnormality)
--- NOTE | 2017-12-05 07:44 | USB ---
Reason for exam: additional evaluation requested from abnormal screening. History: Patient is postmenopausal and history of other cancer. US Breast Workup Limited LT Left breast ultrasound demonstrates no cystic or solid lesion seen. These results were verbally communicated with the patient and result sheet given to the patient on 12/04/17. ASSESSMENT: Negative, BI-RAD 1 RECOMMENDATION: Return to routine screening mammogram schedule for both breasts.
== END | disposition home or self-care (01) ==
LOC: RADMAMWWP 15:32
PROVIDERS: ATTEND Family Medicine
DX: R92.8 Other abnormal and inconclusive findings on diagnostic imaging of breast (principal)
CPT/HCPCS: 77065

== ENCOUNTER → 2019-11-13 | Outpatient (CLI) | payer BC ==
--- NOTE | 2019-11-14 09:40 | MM ---
Reason for exam: screening (asymptomatic). Last mammogram was performed 1 year and 11 months ago. History: Patient is postmenopausal and history of other cancer. Physical Findings: A clinical breast exam by your physician is recommended on an annual basis and results should be correlated with mammographic findings. MG Screening Mammo w CAD Bilateral CC and MLO view(s) were taken. XCCL view(s) were taken of the right breast. Prior study comparison: December 04, 2017, left breast MG work up mamm w CAD LT. November 29, 2017, bilateral MG screening mammo w CAD. The breast tissue is heterogeneously dense. This may lower the sensitivity of mammography. Stable benign calcifications. There is no discrete abnormality. No significant changes when compared with prior studies. ASSESSMENT: Benign, BI-RAD 2 RECOMMENDATION: Routine screening mammogram of both breasts in 1 year.
== END | disposition home or self-care (01) ==
LOC: RADMAMWWP 10:12
PROVIDERS: ATTEND Family Medicine
DX: Z12.31 Encounter for screening mammogram for malignant neoplasm of breast (principal)
CPT/HCPCS: 77067

== ENCOUNTER 2020-10-18 20:03 | Emergency (ER) | payer BC ==
[2020-10-18 20:22] VITALS: TEMP 98.5
[2020-10-18 21:08] LABS: Basophils % (A) 0 %; Eosinophils # (A) 0.2 k/uL (0-0.7); Eosinophils % (A) 2 %; HCT 44.9 % (34.0-46.0); HGB 14.9 gm/dL (11.4-16.0); Lymphocytes % (A) 32 %; MCH 31.6 pg (25.0-35.0); MCHC 33.3 g/dL (31.0-37.0); MCV 94.9 fL (80.0-100.0); Mean Platelet Volume 9.7; Monocytes # (A) 0.3 k/uL (0-1.0); Monocytes % (A) 4 %; Neutrophils # (A) 5.6 k/uL (1.3-7.7); Neutrophils % (A) 60 %; Platelet Count 238 k/uL (150-450); RBC 4.73 m/uL (3.80-5.40); WBC 9.4 k/uL (3.8-10.6)
[2020-10-18 21:16] LABS: ALT 16 U/L (4-34); AST 18 U/L (14-36); African American GFR (CKD) >90 (>60 ml/min/1.73 sqM); Albumin 4.4 g/dL (3.5-5.0); Alkaline Phosphatase 66 U/L (38-126); Amylase 36 U/L (30-110); Anion Gap 8 mmol/L; Blood Urea Nitrogen 14 mg/dL (7-17); Calcium 9.8 mg/dL (8.4-10.2); Carbon Dioxide 25 mmol/L (22-30); Chloride 109 mmol/L (98-107); Glucose 103 mg/dL (74-99); Lipase 59 U/L (23-300); Non-African American GFR(CKD) >90 (>60 ml/min/1.73 sqM); Potassium 3.6 mmol/L (3.5-5.1); Sodium 142 mmol/L (137-145); Total Protein 6.9 g/dL (6.3-8.2)
--- NOTE | 2020-10-18 21:31 | ED ---
Abdominal Pain HPI - General Chief Complaint: Abdominal Pain Stated Complaint: ABD pain Time Seen by Provider: 10/18/20 20:25 Source: patient Mode of arrival: ambulatory Limitations: no limitations - History of Present Illness Initial Comments: 59yo female wtih history of HTN on medications presenting today for 6 weeks on and off of epigastric abdominal pain. Patient states that it has been worsening for the past few days and she has not been able to eat or drink without significant nausea. She states that her stools have been loose, yellow at times. Pt denies chest pain, dyspnea, bloody or dark stools. Denies fevers. Patient denies URI symptoms, recent travel or additional complaints. Pt appears well nontoxic in no acute distress. - Related Data Home Medications Medication Instructions Recorded Confirmed Metoprolol Tartrate [Lopressor] 50 mg PO BID 09/29/16 10/18/20 Simvastatin [Zocor] 20 mg PO HS 09/29/16 10/18/20 Previous Rx's Medication Instructions Recorded amLODIPine [Norvasc] 10 mg PO DAILY #30 tab 06/30/17 Ondansetron Odt [Zofran Odt] 4 mg PO Q8HR PRN 7 Days #21 tab 10/18/20 Pantoprazole Sodium [Protonix] 40 mg PO DAILY 7 Days #7 tablet. 10/18/20 Allergies Allergy/AdvReac Type Severity Reaction Status Date / Time No Known Allergies Allergy Verified 10/18/20 21:29 Review of Systems ROS Statement: Those systems with pertinent positive or pertinent negative responses have been documented in the HPI. ROS Other: All systems not noted in ROS Statement are negative. Past Medical History Past Medical History: Cancer, Chest Pain / Angina, Hyperlipidemia, Hypertension, Skin Disorder Additional Past Medical History / Comment(s): skin cancer, History of Any Multi-Drug Resistant Organisms: None Reported Past Surgical History: Tubal Ligation Additional Past Surgical History / Comment(s): Skin cancer removals, colonoscopy. Past Anesthesia/Blood Transfusion Reactions: Previous Problems w/ Anesthesia Additional Past Anesthesia/Blood Transfusion Reaction / Comment(s): hard time waking up Past Psychological History: No Psychological Hx Reported Smoking Status: Current some day smoker Past Alcohol Use History: Rare Past Drug Use History: None Reported - Past Family History Mother Family Medical History: No Reported History Additional Family Medical History / Comment(s): Mother currently has CDiff. She recently had a ruptured gastric ulcer with surgical repair and is not recovering from this. She is 84 yrs old and pt states currently dying. Father History Unknown: Yes Additional Family Medical History / Comment(s): Father in a train accident. General Exam - General Exam Comments Initial Comments: General: The patient is awake and alert, in no distress Eye: Pupils are equal, round and reactive to light, extra-ocular movements are intact. No nystagmus. There is normal conjunctiva bilaterally. No signs of icterus. Ears, nose, mouth and throat: There are moist mucous membranes and no oral lesions. Neck: The neck is supple, there is no tenderness or JVD. Cardiovascular: There is a regular rate and rhythm. No murmur, rub or gallop is appreciated. Respiratory: Lungs are clear to auscultation, respirations are non-labored, breath sounds are equal. No wheezes, stridor, rales, or rhonchi. Gastrointestinal: Soft, non-distended, mild epigastric tenderness to palpation, (-) muprhys sign, abdomen without masses or organomegaly noted. There is no rebound or guarding present. Musculoskeletal: Normal ROM, no tenderness. Strength 5/5. Sensation intact. Pulses equal bilaterally 2+. Neurological: A&O x 3. CN II-XII intact grossly, There are no obvious motor or sensory deficits. Coordination appears grossly intact. Speech is normal. Skin: Skin is warm and dry and no rashes or lesions are noted. Psychiatric: Cooperative, appropriate mood & affect, normal judgment. Limitations: no limitations Course Vital Signs 10/18/20 10/18/20 20:19 22:46 Temperature 98.5 F Pulse Rate 84 64 Respiratory 18 16 Rate Blood Pressure 145/94 124/84 O2 Sat by Pulse 98 95 Oximetry Medical Decision Making - Medical Decision Making Labs stable. CT no acute process. Biliary labs WNL. Symptoms x weeks. Pt troponin and EKG no acute findings. No chest pain/pressure. pt will be discharged with PCP f/u. At this time patient appears comfortable at discussed case with him far Dr. Joseph at this time if the patient is stable for discharge with outpatient general surgery and GI follow-up. Patient replaced the protonix, Zofran and starter pack tylenol #3 as needed outpatient. Pt is to return for increasing pain. pt agreeable and verbalized she is happy with this plan and discharge today. aware of importance of f/u. - Lab Data Result diagrams: 10/18/20 20:58 10/18/20 20:58 Lab Results 10/18/20 10/18/20 10/18/20 Range/Units 20:45 20:58 20:58 WBC 9.4 (3.8-10.6) k/uL RBC 4.73 (3.80-5.40) m/uL Hgb 14.9 (11.4-16.0) gm/dL Hct 44.9 (34.0-46.0) % MCV 94.9 (80.0-100.0) fL MCH 31.6 (25.0-35.0) pg MCHC 33.3 (31.0-37.0) g/dL RDW 12.0 (11.5-15.5) % Plt Count 238 (150-450) k/uL MPV 9.7 Neutrophils % 60 % Lymphocytes % 32 % Monocytes % 4 % Eosinophils % 2 % Basophils % 0 % Neutrophils # 5.6 (1.3-7.7) k/uL Lymphocytes # 3.0 (1.0-4.8) k/uL Monocytes # 0.3 (0-1.0) k/uL Eosinophils # 0.2 (0-0.7) k/uL Basophils # 0.0 (0-0.2) k/uL Sodium 142 (137-145) mmol/L Potassium 3.6 (3.5-5.1) mmol/L Chloride 109 H (98-107) mmol/L Carbon Dioxide 25 (22-30) mmol/L Anion Gap 8 mmol/L BUN 14 (7-17) mg/dL Creatinine 0.59 (0.52-1.04) mg/dL Est GFR (CKD-EPI)AfAm >90 (>60 ml/min/1.73 sqM) Est GFR (CKD-EPI)NonAf >90 (>60 ml/min/1.73 sqM) Glucose 103 H (74-99) mg/dL Calcium 9.8 (8.4-10.2) mg/dL Total Bilirubin 1.0 (0.2-1.3) mg/dL AST 18 (14-36) U/L ALT 16 (4-34) U/L Alkaline Phosphatase 66 (38-126) U/L Troponin I (0.000-0.034) ng/mL Total Protein 6.9 (6.3-8.2) g/dL Albumin 4.4 (3.5-5.0) g/dL Amylase 36 (30-110) U/L Lipase 59 (23-300) U/L Urine Color Yellow Urine Appearance Clear (Clear) Urine pH 5.5 (5.0-8.0) Ur Specific [place] 1.023 (1.001-1.035) Urine Protein Negative (Negative) Urine Glucose (UA) Negative (Negative) Urine Ketones Negative (Negative) Urine Blood Small H (Negative) Urine Nitrite Negative (Negative) Urine Bilirubin Negative (Negative) Urine Urobilinogen <2.0 (<2.0) mg/dL Ur Leukocyte Esterase Small H (Negative) Urine RBC 4 (0-5) /hpf Urine WBC 3 (0-5) /hpf Ur Squamous Epith Cells <1 (0-4) /hpf Urine Mucus Few H (None) /hpf 10/18/20 Range/Units 20:58 WBC (3.8-10.6) k/uL RBC (3.80-5.40) m/uL Hgb (11.4-16.0) gm/dL Hct (34.0-46.0) % MCV (80.0-100.0) fL MCH (25.0-35.0) pg MCHC (31.0-37.0) g/dL RDW (11.5-15.5) % Plt Count (150-450) k/uL MPV Neutrophils % % Lymphocytes % % Monocytes % % Eosinophils % % Basophils % % Neutrophils # (1.3-7.7) k/uL Lymphocytes # (1.0-4.8) k/uL Monocytes # (0-1.0) k/uL Eosinophils # (0-0.7) k/uL Basophils # (0-0.2) k/uL Sodium (137-145) mmol/L Potassium (3.5-5.1) mmol/L Chloride (98-107) mmol/L Carbon Dioxide (22-30) mmol/L Anion Gap mmol/L BUN (7-17) mg/dL Creatinine (0.52-1.04) mg/dL Est GFR (CKD-EPI)AfAm (>60 ml/min/1.73 sqM) Est GFR (CKD-EPI)NonAf (>60 ml/min/1.73 sqM) Glucose (74-99) mg/dL Calcium (8.4-10.2) mg/dL Total Bilirubin (0.2-1.3) mg/dL AST (14-36) U/L ALT (4-34) U/L Alkaline Phosphatase (38-126) U/L Troponin I <0.012 (0.000-0.034) ng/mL Total Protein (6.3-8.2) g/dL Albumin (3.5-5.0) g/dL Amylase (30-110) U/L Lipase (23-300) U/L Urine Color Urine Appearance (Clear) Urine pH (5.0-8.0) Ur Specific [place] (1.001-1.035) Urine Protein (Negative) Urine Glucose (UA) (Negative) Urine Ketones (Negative) Urine Blood (Negative) Urine Nitrite (Negative) Urine Bilirubin (Negative) Urine Urobilinogen (<2.0) mg/dL Ur Leukocyte Esterase (Negative) Urine RBC (0-5) /hpf Urine WBC (0-5) /hpf Ur Squamous Epith Cells (0-4) /hpf Urine Mucus (None) /hpf Disposition Clinical Impression: Epigastric pain, Nausea, Loose stools Disposition: HOME SELF-CARE Condition: Good Instructions (If sedation given, give patient instructions): Abdominal Pain (ED) Additional Instructions: Please use medication as discussed. Please follow-up with family doctor in the next 2 days, recommend GI follow-up for HIDA scan to rule out gallbladder dysfunction-as well as endoscopy to rule out gastric or duodenal ulceration. Please return to emergency room if the symptoms increase or worsen or for any other concerns. Prescriptions: Pantoprazole Sodium [Protonix] 40 mg PO DAILY 7 Days #7 tablet. Ondansetron Odt [Zofran Odt] 4 mg PO Q8HR PRN 7 Days #21 tab PRN Reason: Nausea Is patient prescribed a controlled substance at d/c from ED?: No Referrals: Estephanie Quiles MD [Primary Care Provider] - 1-2 days Logan Lala MD [STAFF PHYSICIAN] - 1-2 days Cornell Miranda MD [Medical Doctor] - 1-2 days Time of Disposition: 22:26
[2020-10-18 21:50] LABS: Appearance,Urine Clear (Clear); Bilirubin,Urine Negative (Negative); Blood,Urine Small (Negative); Color,Urine Yellow; Glucose,Urine (UA) Negative (Negative); Ketones,Urine Negative (Negative); Leukocyte Esterase,Urine Small (Negative); Mucus,Urine Few /hpf; Nitrite,Urine Negative (Negative); PH, Urine 5.5 (5.0-8.0); Protein,Urine Negative (Negative); RBC,Urine 4 /hpf (0-5); Specific Gravity,Urine 1.023 (1.001-1.035); Squamous Epithelial Cell,Urine <1 /hpf (0-4); Urobilinogen,Urine <2.0 mg/dL (<2.0); WBC,Urine 3 /hpf (0-5)
--- NOTE | 2020-10-18 22:07 | CT ---
EXAMINATION TYPE: CT abdomen pelvis w con DATE OF EXAM: 10/18/2020 COMPARISON: None HISTORY: RUQ pain CT DLP: 627.8 mGycm Automated exposure control for dose reduction was used. CONTRAST: Performed with IV Contrast, patient injected with 100 mL of Isovue 300. Lung bases are clear. There is no pleural effusion. Heart size is normal. There is no pericardial eff usion. Liver spleen stomach pancreas gallbladder appear normal. Bile ducts are not dilated. There is no adrenal mass. Kidneys show satisfactory contrast opacification. There is no hydronephrosi s. There is 1 cm cortical cyst lateral right kidney. There is no retroperitoneal adenopathy. Appendix is posterior and appears normal. Bladder distends smoothly. There is no inguinal hernia. There is no free fluid in the pelvis. Uterus is retroverted. There is no evidence of a pelvic mass. There is no ascites or free air. There is no b owel obstruction. Delayed images show normal renal excretion. There is some atherosclerotic vascular calcification. There is a first-degree L4-5 spondylolisthesis. There is no lumbar compression fracture. There is mil d lumbar levoscoliosis. IMPRESSION: Normal appendix. No acute abnormality of the abdomen pelvis.
[2020-10-18] MEDS ORDERED: ACET/COD 300 MG/30 MG STARTER PACK 6 TAB BTL PO STA (22:20)
[2020-10-18] MEDS ORDERED: ONDANSETRON 4 MG ODT STARTER PACK 2 TAB BTL PO STA (22:42)
[2020-10-18 22:48] VITALS: BP 124/84; PULSE 64; RESP 16
== END 2020-10-18 22:48 | disposition home or self-care (01) ==
LOC: EC 20:03
DX: R10.13 Epigastric pain (principal); R11.0 Nausea; R19.7 Diarrhea, unspecified; R10.816 Epigastric abdominal tenderness; I10 Essential (primary) hypertension; E78.5 Hyperlipidemia, unspecified; F17.200 Nicotine dependence, unspecified, uncomplicated; Z79.899 Other long term (current) drug therapy; Z85.828 Personal history of other malignant neoplasm of skin
CPT/HCPCS: 36415; 93005; 80053; 82150; 83690; 84484; 85025; 81001; 74177; 99284; S0119; Q9967

== ENCOUNTER → 2020-11-04 | Outpatient (CLI) | payer BC ==
--- NOTE | 2020-11-04 09:17 | NM ---
EXAMINATION TYPE: NM hepatobiliary w EF DATE OF EXAM: 11/04/2020 COMPARISON: CT 10/18/2020 HISTORY: Epigastric pain TECHNIQUE: After the intravenous administration of 4.88 mCi Tc 99m Mebrofenin hepatobiliary scintigra phy is performed. Immediate images post injection. FINDINGS: There is satisfactory initial accumulation of tracer by the liver. The gallbladder is visualized wit hin 12 minutes. The small bowel activity is noted on delayed images. At one hour 8 ounces of oral e nsure plus is given to mimic CCK and gallbladder ejection fraction is calculated at 49 %, in the norm al range. Therefore there is no scintigraphic evidence of cystic or common bile duct obstruction to suggest acute cholecystitis or gallbladder dyskinesia. IMPRESSION: Exam is within normal limits.
== END | disposition home or self-care (01) ==
LOC: RADNMMAIN 06:59
PROVIDERS: ATTEND Family Medicine
DX: R13.10 Dysphagia, unspecified (principal); R10.11 Right upper quadrant pain
CPT/HCPCS: 78226; A9537

== ENCOUNTER → 2021-06-23 | Outpatient (CLI) | payer BC ==
--- NOTE | 2021-06-27 11:25 | MM ---
Reason for exam: screening (asymptomatic). Last mammogram was performed 1 year and 7 months ago. History: Patient is postmenopausal and history of other cancer. Physical Findings: A clinical breast exam by your physician is recommended on an annual basis and results should be correlated with mammographic findings. MG Screening Mammo w CAD Bilateral CC, MLO, and XCCL view(s) were taken. Prior study comparison: December 04, 2017, left breast MG work up mamm w CAD LT. The breast tissue is heterogeneously dense. This may lower the sensitivity of mammography. There are benign appearing round calcifications bilaterally. There is no discrete abnormality. ASSESSMENT: Benign, BI-RAD 2 RECOMMENDATION: Routine screening mammogram of both breasts in 1 year.
== END | disposition home or self-care (01) ==
LOC: RADMAMWWP 07:41
PROVIDERS: ATTEND Family Medicine
DX: Z12.31 Encounter for screening mammogram for malignant neoplasm of breast (principal)
CPT/HCPCS: 77067

== ENCOUNTER → 2022-08-29 | Outpatient (CLI) | payer BC ==
--- NOTE | 2022-08-30 09:03 | MM ---
Reason for Exam: Screening (asymptomatic). Last mammogram was performed 1 year(s) and 3 month(s) ago. Patient History: Menarche at age 18. First Full-Term at age 21. Postmenopausal. Other cancer. Risk Values: [place] 5 year model risk: 1.2%. NCI Lifetime model risk: 6.0%. Prior Study Comparison: 12/04/2017 Left Diagnostic Mammogram, [facility]. 11/13/2019 Bilateral Screening Mammogram, [facility]. 06/23/2021 Bilateral Screening Mammogram, [facility]. Tissue Density: The breast tissue is heterogeneously dense. This may lower the sensitivity of mammography. Findings: Analyzed By CAD. There is no suspicious group of microcalcifications or new suspicious mass in either breast. Overall Assessment: Negative, BI-RAD 1 Management: Screening Mammogram of both breasts in 1 year. A clinical breast exam by your physician is recommended on an annual basis and results should be correlated with mammographic findings. [facility] will attempt to contact patient to return for supplemental views and ultrasound if indicated. Electronically signed and approved by: Fidencio Clemons DO
== END | disposition home or self-care (01) ==
LOC: RADMAMWWP 07:48
PROVIDERS: ATTEND Family Medicine
DX: Z12.31 Encounter for screening mammogram for malignant neoplasm of breast (principal); Z78.0 Asymptomatic menopausal state
CPT/HCPCS: 77067

== ENCOUNTER → 2024-03-11 | Outpatient (CLI) | payer BC ==
--- NOTE | 2024-03-11 17:39 | MM ---
Reason for Exam: Screening (asymptomatic). Last mammogram was performed 1 year(s) and 6 month(s) ago. Patient History: Menarche at age 18. First Full-Term at age 21. Postmenopausal. Other cancer. Risk Values: Leatha 5 year model risk: 1.2%. NCI Lifetime model risk: 5.7%. Prior Study Comparison: 11/13/2019 Bilateral Screening Mammogram, [facility]. 06/23/2021 Bilateral Screening Mammogram, [facility]. 08/29/2022 Bilateral MG screening mammo w CAD, [facility]. Tissue Density: The breasts are heterogeneously dense, which may obscure small masses. Findings: Analyzed By CAD. The pattern is symmetrical. Pattern appears stable. Benign round calcifications are right breast. There is an area of increased density within the upper medial lateral oblique view 8 cm from the nipple. This may be a summation density. Additional workup is recommended. This is a change from comparison. Right breast:No suspicious groups of microcalcifications, spiculated or lobular masses, architectural distortion or other secondary signs of malignancy are mammographically apparent. Overall Assessment: Incomplete: need additional imaging evaluation, BI-RAD 0 Management: Diagnostic Mammogram of the left breast. A negative mammogram report should not preclude additional follow up of suspicious palpable abnormalities. Patient should continue monthly self breast exam. A clinical breast exam by your physician is recommended on an annual basis and results should be correlated with mammographic findings. Note on Leatha scores and lifetime risk: 1. A Leatha score greater than 3% is considered moderate risk. If this is the case, consider specialist referral to assess eligibility for a risk reducing agent. 2. If overall lifetime risk for the development of breast cancer is 20% or higher, the patient may qualify for future screening with alternating mammogram and breast MRI. Electronically signed and approved by: Lew Hyman D.O. Radiologis
== END | disposition home or self-care (01) ==
LOC: RADMAMWWP 15:17
PROVIDERS: ATTEND Family Medicine
DX: Z12.31 Encounter for screening mammogram for malignant neoplasm of breast (principal); Z78.0 Asymptomatic menopausal state
CPT/HCPCS: 77067

== ENCOUNTER → 2025-01-06 | Outpatient (CLI) | payer BC ==
[2025-01-06 15:21] LABS: BUN/Creat Ratio 14.43 Ratio (12.00-20.00); Blood Urea Nitrogen 10.1 mg/dL (9.0-27.0); Chloride 103 mmol/L (96-109); Chol/HDL Ratio 3.51 Ratio; Glucose 92 mg/dL (70-110); LDL Cholesterol,Calculated 97.2 mg/dL (0.0-131.0); Potassium 3.6 mmol/L (3.5-5.5); Sodium 141 mmol/L (135-145)
[2025-01-06 15:22] LABS: ALT 20 U/L (8-44); AST 16 U/L (13-35); Albumin 4.3 g/dL (3.8-4.9); Albumin/Globulin Ratio 2.05 Ratio (1.60-3.17); Alkaline Phosphatase 103 U/L (41-126); Calcium 9.8 mg/dL (8.7-10.3); Globulin 2.1 g/dL (1.6-3.3); Total Bilirubin 0.8 mg/dL (0.3-1.2); Total Protein 6.4 g/dL (6.2-8.2)
== END | disposition home or self-care (01) ==
LOC: LABWHC1 11:05
PROVIDERS: ATTEND Internal Medicine Interventional Cardiology
DX: E78.2 Mixed hyperlipidemia (principal)
CPT/HCPCS: 36415; 80053; 80061